=== PATIENT | female | born 1970 | race Two or more races ===

== ENCOUNTER 2016-12-20 09:27 | Emergency (ER) | payer BC, OTHER ==
--- NOTE | ~2016-12-20 | CT17 ---
[facility] A Service of [facility] RADIOLOGY TEXT RESULTS PATIENT: JUNAA MARIN LOCATION: SED : 71 UNIT #: [id number] AGE: [address]: Norma Foster MD SEX: F ORDER DR: [id number] [place] [address] [id number] E MR#: [id number] Acc #: [id number] NAME: JUANA MARIN : 1970 SEX: F STUDY DATE/TIME: 12/20/2016 11:17 UNIT: SED ROOM: STUDY DESCRIPTION: CT Angio Head Attending Physician: Norma Foster M.D. Ordering Physician: Norma Foster M.D. Primary Care Physician: Reed Navarrete M.D. MEDICAL IMAGING REPORT This report is preliminary unless electronic signature is present. EXAM Head and neck CT angiogram with contrast. DATE OF STUDY 12/20/2016 PROCEDURE Axial contrast-enhanced head and neck CT angiogram with three-dimensional reformats. This CT exam was performed with one or more of the following radiation dose reduction techniques: automatic exposure control, adjustment of mA and/or kV according to patient size, and iterative reconstruction. COMPARISON STUDIES Head CT, same date. CLINICAL HISTORY Headache and dizziness since 12/17/2016. FINDINGS There is a normal aortic arch branching pattern without proximal great vessel stenosis. Post cervical common and internal and external carotid and vertebral arteries are widely patent without evidence of any narrowing or plaque at either carotid bifurcation. The carotid siphons are widely patent. The anterior communicator is widely patent. Both posterior communicators are well demonstrated and patent. The dural venous sinuses are normally patent. There is no intracranial mass or abnormal enhancement. There is no intracranial region or zone of hypoperfusion. [facility] RADIOLOGY TEXT RESULTS PATIENT: JUANA MARIN LOCATION: SED : 71 UNIT #: [id number] AGE: [address]: Norma Foster MD SEX: F ORDER DR: intracranial vascularity in the anterior, middle, and posterior cerebral distributions without evidence of flow-limiting stenosis, aneurysm, or branch vessel occlusion. The extracranial soft tissues are normal. The cervical soft tissues are unremarkable. There is a tiny low-density left thyroid lesion about 6 mm in size. The lung apices are normal. The bony structures are normal. There is right maxillary sinus mucosal thickening and possibly even an air-fluid level. IMPRESSION 1. Essentially normal head and neck CT angiogram. No intra or extracranial aneurysm or stenosis. Symmetric intracranial vascularity, complete [place] of [place]. 2. No acute intracranial abnormality. 3. Right maxillary mucosal thickening. Question right maxillary air-fluid level which might suggest an acute sinusitis. 4. Incidentally noted 5 mm low-density left thyroid nodule. Unless there is a personal family history suggesting increased risk of thyroid malignancy, no further imaging followup is required. 5. Otherwise, negative exam. No acute abnormality. Dictated by... Edilson Arce M.D. THIS IS AN ELECTRONICALLY VERIFIED REPORT Edilson Arce M.D. at 12/22/2016 1:21 PM KEITH/gaye TD: 12/20/2016 14:18 JOB #: [id number] MEDICAL IMAGING REPORT Page 1 of 1
--- NOTE | ~2016-12-20 | CT23 ---
[facility] A Service of [facility] & [facility] RADIOLOGY TEXT RESULTS PATIENT: JUANA MARIN LOCATION: SED : 71 UNIT #: [id number] AGE: [address]: Norma Foster MD SEX: F ORDER DR: [id number] [facility] [address] [place], [place] [address] [id number] E MR#: [id number] Acc #: [id number] NAME: JUANA MARIN : 1970 SEX: F STUDY DATE/TIME: 12/20/2016 11:17 UNIT: [facility] ROOM: STUDY DESCRIPTION: CT Angio Neck Attending Physician: Norma Foster M.D. Ordering Physician: Norma Foster M.D. Primary Care Physician: Reed Navarrete M.D. MEDICAL IMAGING REPORT This report is preliminary unless electronic signature is present EXAM Neck CT angiogram with contrast. DATE OF STUDY 12/20/2016 CLINICAL HISTORY Headache and dizziness since 12/17/2016. FINDINGS Please see CT angio head for results. Dictated by... Edilson Arce M.D. THIS IS AN ELECTRONICALLY VERIFIED REPORT Edilson Arce M.D. at 12/22/2016 1:22 PM KEITH/gaye TD: 12/20/2016 14:20 JOB #: [id number] MEDICAL IMAGING REPORT Page 1 of 1 COPY
--- NOTE | ~2016-12-20 | CT71 ---
[facility] A Service of [facility] RADIOLOGY TEXT RESULTS PATIENT: JUANA MARIN LOCATION: SED : 71 UNIT #: [id number] AGE: [address]: Norma Foster MD SEX: F ORDER DR: [id number] [address] [address] [id number] E MR#: [id number] Acc #: [id number] NAME: JUANA MARIN : 1970 SEX: F STUDY DATE/TIME: 12/20/2016 11:17 UNIT: SED ROOM: STUDY DESCRIPTION: CT Head Wo Contrast Attending Physician: Norma Foster M.D. Ordering Physician: Norma Foster M.D. Primary Care Physician: Rede Navarrete M.D. MEDICAL IMAGING REPORT This report is preliminary unless electronic signature is present. EXAM CT of the head without contrast. INDICATION Dizziness and headaches since December 17, 2016. Patient reports the dizziness occurs with the patient is lying still. TECHNIQUE Axial CT images were obtained from the vertex of the skull through the skull base. No intravenous contrast material was administered. This CT exam was performed with one or more of the following radiation dose reduction techniques: automatic exposure control, adjustment of mA and/or kV according to patient size, and iterative reconstruction. FINDINGS No acute intracranial hemorrhage is identified. Brain parenchyma is normal in attenuation with no focal areas of decreased attenuation seen. There is no midline shift or mass effect. The patient is suspected to have some debris within the right maxillary sinus and probably some focal thickening. Mastoid air cells are clear as are the remainder of the paranasal sinuses. There are no focal soft tissue abnormalities. IMPRESSION 1. No acute intracranial process is identified. Specifically, there is no evidence of acute hemorrhage, mass lesion, or acute infarct. 2. Sinus inflammatory changes involving the right maxillary sinus. Dictated by... Nazia Blackburn M.D. [facility] A Service [facility] RADIOLOGY TEXT RESULTS PATIENT: JUANA MARIN LOCATION: SED : 71 UNIT #: [id number] AGE: [address]: Norma Foster MD SEX: F ORDER DR: THIS IS AN ELECTRONICALLY VERIFIED REPORT Nazia Blackburn M.D. at 12/20/2016 4:50 PM AFF/tmw TD: 12/20/2016 14:02 JOB #: [id number] MEDICAL IMAGING REPORT Page 1 of 1
--- NOTE | ~2016-12-20 | EKG ---
PATIENT: JUANA MARIN UNIT #: [id number] Ventricular Rate: 51 BPM Atrial Rate: 51 BPM P-R Interval: 148 ms QRS Duration: 82 ms Q-T Interval: 482 ms QTC Calculation(Bezet): 444 ms P [place]: 3 degrees Calculated R [place]: -22 degrees Calculated T [place]: -4 degrees Diagnosis Line: Sinus bradycardia Diagnosis Line: Otherwise normal ECG Diagnosis Line: When compared with ECG of 29-JUL-2015 21:14, Diagnosis Line: No significant change was found Diagnosis Line: Confirmed by MARI TORIBIO MD ([id number]) on Diagnosis Line: 12/21/2016 1:27:27 PM INTERPRETING MD: CATARINO LA
--- NOTE | ~2016-12-20 | CR72 ---
[facility] A Service of [facility] & [facility] RADIOLOGY TEXT RESULTS PATIENT: JUANA MARIN LOCATION: SED : 71 UNIT #: [id number] AGE: [address]: Norma Foster MD SEX: F ORDER DR: [id number] [place] [id number] E MR#: [id number] Acc #: [id number] NAME: JUANA MARIN : 1970 SEX: F STUDY DATE/TIME: UNIT: SED ROOM: STUDY DESCRIPTION: CR Chest Single View Portable Attending Physician: Norma Foster M.D. Ordering Physician: Norma Foster M.D. Primary Care Physician: Reed Garza MEDICAL IMAGING REPORT This report is preliminary unless electronic signature is present. EXAM Chest portable 12/20/2016 1122 hours HISTORY 46-year-old woman with dizziness, headache since 12/17/2016. Patient complains of dizziness when lying still. COMPARISON 06/03/2016 FINDINGS Portable upright chest demonstrates normal cardiac, mediastinal and hilar contours. The pulmonary vascularity is normal. The lungs are clear and there are no effusions. IMPRESSION Normal upright portable chest. Dictated by... Ely Horner M.D. THIS IS AN ELECTRONICALLY VERIFIED REPORT Ely Horner M.D. at 12/20/2016 2:26 PM SMM/drake TD: 12/20/2016 14:08 JOB #: [id number] MEDICAL IMAGING REPORT Page 1 of 1
[~2016-12-20 09:27] MED LIST: ANTIVERT PO; IBUPROFEN PO; NEXIUM PO; PERCOCET5/325 PO; ROBAXIN 750750 MG PO; ULTRAM PO; VOLTAREN75 MG PO
[2016-12-20 10:43] LABS: BASOPHIL% 0.4 % (0-2.5); DIFF IND NO; EOSINOPHIL# 0.1 X10e3 (0-0.7); EOSINOPHIL% 1.6 % (0.0-7.0); HEMATOCRIT 42.6 % (35.0-45.0); HEMOGLOBIN 14.3 gm/dL (12.0-16.0); LYMPHOCYTE# 1.6 X10e3 (1.0-3.5); LYMPHOCYTE% 29.4 % (17.0-45.0); MEAN CELL VOLUME 90.4 FL (83-96); MEAN CORPUSCULAR HEMOGLOBIN 30.3 PG (28-34); MEAN CORPUSCULAR HGB CONC 33.6 g/dL (30-36); MEAN PLATELET VOLUME 8.6 FL (6.5-11.5); MONOCYTE# 0.4 X10e3 (0-1.0); MONOCYTE% 7.9 % (3.0-12.0); NEUTROPHIL# 3.4 X10e3 (1.5-7.1); NEUTROPHIL% 60.7 % (40-75); PLATELET COUNT 228 X10e3 (140-420); RED BLOOD COUNT 4.72 X10e (3.90-5.30); RED CELL DISTRIBUTION WIDTH 14.1 % (11.0-15.5); WHITE BLOOD COUNT 5.6 X10e3 (4.0-10.5)
[2016-12-20 10:53] LABS: INR 1.2; PROTHROMBIN TIME (PATIENT) 13.5 SECONDS (9.5-12.4)
[2016-12-20 10:54] LABS: POC - CKMB <1.0 ng/mL (0.0-7.9)
[2016-12-20 10:55] LABS: POC - TROPONIN <0.05 ng/mL (<=0.05)
[2016-12-20 11:00] LABS: PARTIAL THROMBOPLASTIN TIME 29.6 SECONDS (25.6-38.1)
[2016-12-20 11:02] LABS: ALBUMIN SERUM 4.8 g/dL (3.5-5.0); BILIRUBIN, DIRECT 0.1 mg/dL (0.0-0.2); BILIRUBIN,INDIRECT 0.3 mg/dL (0.0-0.9); BILIRUBIN,TOTAL 0.4 mg/dL (0.2-2.0); CREATININE SERUM 0.8 mg/dL (0.6-1.4); GLOM FILT RATE Estimated 89.1 mL/min (>60); POTASSIUM 4.4 mmol/L (3.5-5.1); PROTEIN TOTAL SERUM 7.7 g/dL (6.0-8.3)
[2016-12-20 12:05] LABS: POC - CKMB <1.0 ng/mL (0.0-7.9); POC - TROPONIN <0.05 ng/mL (<=0.05)
[2016-12-20] MEDS ORDERED: MOTRIN600 M1 PO (12:40)
[2016-12-20] MEDS ORDERED: ANTIVERT PO (12:40)
[2017-02-02] MEDS ORDERED: [UNRECOGNIZED DRUG - REMARK] (09:48)
[2017-02-02] MEDS ORDERED: NAPROXEN (09:49)
[2017-02-02] MEDS ORDERED: NEXIUM (20:28)
== END 2016-12-20 12:45 | disposition home or self-care (01) ==
LOC: SED 09:27
PROVIDERS: Emergency Medicine
DX: R42 Dizziness and giddiness (principal); R51 Headache; K21.9 Gastro-esophageal reflux disease without esophagitis; G89.29 Other chronic pain
CPT/HCPCS: 36415; 70450; 70496; 70498; 71010; 80048; 80076; 82553; 84484; 85025; 85610; 85730; 93005; 96360; 99284; Q9967

== ENCOUNTER → 2017-01-06 | Outpatient (CLI) | payer BC, OTHER ==
[~2017-01-06] MED LIST changes: +MOTRIN600 M1 PO; +NAPROXEN; +NEXIUM; +[UNRECOGNIZED DRUG - REMARK]
--- NOTE | ~2017-01-06 | US128 ---
[id number] [facility] [address] [place], [place] [address] [id number] O MR#: [id number] Acc #: [id number] NAME: JUANA MARIN : 1970 SEX: F STUDY DATE/TIME: 01/06/2017 14:58 UNIT: [facility]US ROOM: STUDY DESCRIPTION: Thyroid Attending Physician: Reed Navarrete M.D. Referring Physician: Reed Navarrete M.D. Ordering Physician: Reed Navarrete M.D. Primary Care Physician: Reed Navarrete M.D. MEDICAL IMAGING REPORT This report is preliminary unless electronic signature is present EXAM Thyroid ultrasound 01/06/2017 INDICATION Follow up thyroid nodules from prior ultrasound. FINDINGS Sonographic evaluation is performed of the thyroid gland in multiple planes. Comparison is made with 11/11/2014. Right lobe measures 3.9 x 1.3 x 1.1 cm. Left lobe measures 4.0 x 1.0 x 1.1 cm. The isthmus is 4 mm in thickness. Hypoechoic nodule in the upper thyroid lobe on the right measures 4 x 3 x 3 mm. This was previously about 3 x 2 x 2 mm and may be truly minimally larger. A cystic and solid appearing nodule in the left mid thyroid lobe measures 9 x 5 x 6 mm today. If this is the same nodule seen on the prior study, it previously measured 4 x 2 x 4 mm in size. The cystic component is larger. There is a tiny hypoechoic lesion in the left side of the isthmus measuring 2 mm in size. This is not significantly changed. IMPRESSION Interval enlargement of a left mid thyroid nodule now measuring up to 9 mm in size. The cystic component has enlarged. Consider either ultrasound-guided fine-needle aspiration or surveillance imaging in about 6 months. The other 2 nodules seen previously are again identified. Tiny 1 on the left side of the isthmus is stable. A small nodule in the right thyroid lobe measuring 4 mm in size may be minimally larger but still appears benign. No new lesions. Dictated by... Anderson Lozada Jr., M.D. THIS IS AN ELECTRONICALLY VERIFIED REPORT Anderson Lozada Jr., M.D. at 01/07/2017 3:53 PM GIULIANO/catie TD: 01/07/2017 10:20 JOB #: [id number] MEDICAL IMAGING REPORT Page 1 of 1 COPY
== END | disposition home or self-care (01) ==
LOC: CGUS 14:33
DX: E04.1 Nontoxic single thyroid nodule (principal); E04.2 Nontoxic multinodular goiter
CPT/HCPCS: 76536

== ENCOUNTER → 2017-01-26 | Outpatient (CLI) | payer BC, OTHER ==
--- NOTE | ~2017-01-26 | XA230 ---
[facility] A Service of [facility] & [facility] RADIOLOGY TEXT RESULTS PATIENT: JUANA MARIN LOCATION: CIVR : 72 UNIT #: [id number] AGE: [address]: Reed Garza MD SEX: F ORDER DR: [id number] [place] [address] [facility] [place], [place] [address] [id number] O MR#: [id number] Acc #: [id number] NAME: JUANA MARIN : 1970 SEX: F STUDY DATE/TIME: 01/26/2017 10:52 UNIT: [facility] ROOM: STUDY DESCRIPTION: XA FNA Attending Physician: Reed Navarrete M.D. Referring Physician: Reed Navarrete M.D. Ordering Physician: Reed Navarrete M.D. Primary Care Physician: Reed Navarrete M.D. MEDICAL IMAGING REPORT This report is preliminary unless electronic signature is present EXAM Thyroid ultrasound HISTORY Ms. Marin is a 46-year woman who was found to have a left thyroid nodule on a ultrasound performed January 06, 2017. This nodule has increased in size when compared to a prior study from November 11, 2014. She was referred for FNA. PROCEDURE The risks, benefits, and alternatives to the procedure explained to the patient, and signed, informed consent was obtained as was obtained by a demonstrator sewing techniques. Patient was placed supine on angiographic table and prepped and draped in usual sterile fashion. The ultrasound probe was covered with a sterile probe cover and sterile gel was applied. Initial image showed a very small mixed solid and cystic nodule located within the left lobe of thyroid gland. I did attempt to anesthetize the overlying tissues with buffered lidocaine, but the patient was agitated and nervous. At this point, procedure was terminated. I do not think that this procedure can be performed on this patient without sedation given her issues with anxiety and this was discussed with the patient. She will be rescheduled with plan for conscious sedation. IMPRESSION 1. This patient has a very small mixed solid and cystic nodule within the left lobe of the thyroid gland. This nodule will be technically difficult to access given its small size and is impossible to access with the patient moving. She will require conscious sedation for any attempted FNA and she will be rescheduled with conscious sedation next week. This was discussed with the at the termination of procedure. Dictated by... [facility] A Service of [facility] RADIOLOGY TEXT RESULTS PATIENT: JUANA MARIN LOCATION: [facility] : 72 UNIT #: [id number] AGE: [address]: Reed Garza MD SEX: F ORDER DR: Nazia Blackburn M.D. THIS IS AN ELECTRONICALLY VERIFIED REPORT Nazia Blackburn M.D. at 01/27/2017 4:41 PM AFF/pc TD: 01/27/2017 10:57 JOB #: [id number] MEDICAL IMAGING REPORT Page 1 of 1 COPY
== END | disposition home or self-care (01) ==
LOC: CIVR 10:14
DX: E04.2 Nontoxic multinodular goiter (principal); F41.9 Anxiety disorder, unspecified; Z53.09 Procedure and treatment not carried out because of other contraindication
CPT/HCPCS: 76536

== ENCOUNTER → 2017-02-02 | Outpatient (CLI) | payer BC, OTHER ==
--- NOTE | ~2017-02-02 | XA230 ---
[facility] A Service of [facility] & [facility] RADIOLOGY TEXT RESULTS PATIENT: JUANA MARIN LOCATION: [facility] : 71 UNIT #: [id number] AGE: [address]: Reed Garza MD SEX: F ORDER DR: [id number] [place] [address] [place], [place] [address] [id number] O MR#: [id number] Acc #: [id number] NAME: JUANA MARIN : 1970 SEX: F STUDY DATE/TIME: 02/02/2017 7:45 UNIT: [facility] ROOM: STUDY DESCRIPTION: XA FNA Attending Physician: Reed Navarrete M.D. Ordering Physician: Reed Navarrete M.D. MEDICAL IMAGING REPORT This report is preliminary unless electronic signature is present EXAM Ultrasound-guided thyroid FNA INDICATION Ms. Marin is a 46-year-old lady with a history of multiple thyroid nodules. She has a nodule on the left which is mixed solid and cystic which has increased in size. She was referred for thyroid FNA. This was attempted on January 27, 2017 but the patient was unable to tolerate the procedure without sedation. She was subsequently rescheduled with sedation. PROCEDURE The risks, benefits, and alternatives to the procedure were explained to the patient, and signed, informed consent was obtained. Preliminary ultrasound of the left lobe of the thyroid gland was performed which demonstrated a mixed solid and cystic nodule. Patient was prepped and draped in the usual sterile fashion. Sterile gel was applied to the left neck and a sterile probe cover was applied to the ultrasound. Skin and subcutaneous tissues were anesthetized with buffered lidocaine and a total of 3 separate passes were made into the lesion under direct sterile sonographic guidance using 25-gauge needles. Specimens were given to a ct scan special procedures technologist who confirmed that an adequate specimen had ninoska obtained. At this point, the procedure was terminated. Patient did receive moderate sedation. I supervised the IVR nurse and monitored the patient's vital signs for a total of 11 minutes of face to face time. IMPRESSION Technically successful ultrasound-guided left thyroid FNA as noted above. Ultrasound was used during the procedure and permanent images were saved. Dictated by... [facility] A Service of [facility] & [facility] RADIOLOGY TEXT RESULTS PATIENT: JUANA MARIN LOCATION: [facility] : 72 UNIT #: [id number] AGE: [address]: Reed Garza MD SEX: F ORDER DR: Nazia Blackburn M.D. THIS IS AN ELECTRONICALLY VERIFIED REPORT Nazia Blackburn M.D. at 02/03/2017 5:11 PM JUHI/catie TD: 02/03/2017 10:02 JOB #: [id number] MEDICAL IMAGING REPORT Page 1 of 1 COPY
[2017-02-02 07:15] LABS: HEMATOCRIT 43.3 % (35.0-45.0); HEMOGLOBIN 14.1 gm/dL (12.0-16.0); MEAN CELL VOLUME 90.9 FL (83-96); MEAN CORPUSCULAR HEMOGLOBIN 29.5 PG (28-34); MEAN CORPUSCULAR HGB CONC 32.5 g/dL (30-36); MEAN PLATELET VOLUME 8.6 FL (6.5-11.5); RED BLOOD COUNT 4.76 X10e (3.90-5.30); RED CELL DISTRIBUTION WIDTH 13.7 % (11.0-15.5); WHITE BLOOD COUNT 5.1 X10e3 (4.0-10.5)
[2017-02-02 07:28] LABS: INR 1.1; PARTIAL THROMBOPLASTIN TIME 27.1 SECONDS (23.5-31.3); PROTHROMBIN TIME (PATIENT) 11.4 SECONDS (10.0-11.7)
== END | disposition home or self-care (01) ==
LOC: CLAB 06:46
PROVIDERS: Family Medicine
DX: E04.1 Nontoxic single thyroid nodule (principal)
CPT/HCPCS: 36415; 76942; 85027; 85610; 85730; 88173; J2250; J3010